=== PATIENT | female | born 1945 | race Hispanic/Latino ===

== ENCOUNTER 2017-07-26 05:57 | Day surgery (SDC) | payer MEDICARE ==
[2017-07-22 12:58] LABS: BASOPHILS % (AUTO) 0.7 % (0.0-5.0); EOSINOPHILS % (AUTO) 1.6 % (0.0-8.0); HEMATOCRIT 37.3 % (36-48); MEAN CORPUSCULAR HEMOGLOBIN 29.2 pg (27.0-33.0); MEAN CORPUSCULAR HGB CONC 33.6 g/dL (32.0-36.0); MEAN CORPUSCULAR VOLUME 87.1 fL (79-99); MONOCYTES % (AUTO) 7.8 % (3.0-13.0); NEUTROPHILS % (AUTO) 60.9 % (40.0-77.0); PLATELET COUNT (AUTO) 409 K/uL (130-400); RED BLOOD CELL COUNT(AUTO) 4.28 MIL/uL (4.00-5.50); RED CELL DISTRIBUTION WIDTH 14.5 % (11.0-15.5)
[2017-07-22 13:03] LABS: CREATININE 0.6 mg/dL (0.5-1.5); POTASSIUM 4.4 mmol/L (3.5-5.1)
[2017-07-22 13:35] VITALS: BP 123/74
[~2017-07-26] VITALS: Ht 144.8 cm; Wt 43.6 kg
[2017-07-26] VITALS (13 sets, daily range): BP systolic 118–137; BP diastolic 62–84
[~2017-07-26 05:57] MED LIST: FLUO20CA30 PO; LACT10SO32 PO
[2017-07-26] MEDS ORDERED: CLINDAMYCIN 900 MG/D5% WATER 50 ML IV ONE ×2 (06:33→08:00)
[2017-07-26] MEDS ORDERED: LACTATED RINGERS 1000ML 1,000 ML IV ONE (06:33)
[2017-07-26] MEDS ORDERED: MIDAZOLAM HCL 1 MG/ML 2ML VIAL ONE (06:43)
[2017-07-26] MEDS ORDERED: NEOSTIGMINE 5MG/5ML SYR IV ONE (06:43)
[2017-07-26] MEDS ORDERED: PROPOFOL 10 MG/ML 20ML VIAL IV ONE (06:43)
[2017-07-26] MEDS ORDERED: GLYCOPYRROLATE 0.2 MG/ML 5 ML VIAL ONE (06:43)
[2017-07-26] MEDS ORDERED: LIDOCAINE PF 2% 5ML ABBOJECT ONE (06:43)
[2017-07-26] MEDS ORDERED: FENTANYL CITRATE PF 50 MCG/1 ML 2ML VIAL ONE ×3 (06:43→08:02)
[2017-07-26] MEDS ORDERED: ONDANSETRON HCL 4 MG/2 ML VIAL ONE (06:43)
[2017-07-26] MEDS ORDERED: DEXAMETHASONE SOD PHOSPHATE 10MG/ML 1ML VIAL ONE (06:43)
[2017-07-26] MEDS ORDERED: ACET650S28 PO (07:00)
[2017-07-26] MEDS ORDERED: TRAM50TA4 PO (07:01)
[2017-07-26] MEDS ORDERED: LIDOCAINE HCL/EPINEPHRINE 50 ML VIAL IJ ONE (07:35)
[2017-07-26] MEDS ORDERED: MEPERIDINE-PF 25 MG/ML SYG ONE ×2 (08:25→08:51)
[2017-07-26] MEDS ORDERED: PROMETHAZINE HCL 25 MG/ML 1ML AMPULE IM ONE (08:51)
== END 2017-07-26 12:40 | disposition home or self-care (01) ==
LOC: DAH 05:57
PROVIDERS: ATTEND Neurological Surgery
DX: S32.048A Other fracture of fourth lumbar vertebra, initial encounter for closed fracture (principal); M19.90 Unspecified osteoarthritis, unspecified site; F32.9 Major depressive disorder, single episode, unspecified; W19.XXXA Unspecified fall, initial encounter; Y93.89 Activity, other specified; Y99.8 Other external cause status; Z88.8 Allergy status to other drugs, medicaments and biological substances; Z79.899 Other long term (current) drug therapy
CPT/HCPCS: 22511; 36415; 71045; 76000; 80048; 85025; 93005; A4215; C1763; J1100; J2001; J2175 ×2; J2250; J2405; J2550; J2704; J2710; J3010 ×3; J3490 ×2; J7120